=== PATIENT | male | born 1975 | race American Indian/Alaskan Native ===

== ENCOUNTER 2016-11-13 17:35 | Emergency (ER) | payer SELFPAY ==
[2016-11-13 17:46] VITALS: BP 147/92
--- NOTE | 2016-11-13 21:18 | XRay Report ---
FINAL REPORT EXAM: XR FOOT 3 LT HISTORY: LEFT FOOT pain COMPARISONS: None. FINDINGS: Three nonweightbearing views left foot No bone lesion, periosteal reaction, or fracture. No deformity or gross malalignment. IMPRESSION: No fracture or gross malalignment.
--- NOTE | 2016-11-13 21:19 | XRay Report ---
FINAL REPORT EXAM: XR ANKLE 3 LT HISTORY: LEFT ANKLE pain COMPARISONS: None. FINDINGS: Four nonweightbearing views left ankle The ankle mortise is intact. Os trigonum is noted. No bone lesion, periosteal reaction, or fracture. No deformity or gross malalignment. IMPRESSION: No fracture or gross malalignment.
[2016-11-13] MEDS ORDERED: TORADOL IM ONE (21:58)
--- NOTE | 2016-11-13 22:29 | Emergency Department Report ---
Entered by BEN BADILLO, acting as scribe for DAYANA GARRISON NP. ED Lower Extremity HPI - General Chief Complaint: Extremity Injury, Lower Stated Complaint: FOOT PAIN Time Seen by Provider: 11/13/16 19:59 Source: patient Mode of arrival: Ambulatory Limitations: No Limitations - History of Present Illness Initial Comments: This is a 41 year old male that is non-toxic, non ill appearing, in no acute distress with c/o aching left foot pain. Patient stated he started to walk a lot for work and started to develop these symptoms since then. Symptoms has occurred 3 days ago. Patient does not know the source of pain or swelling. Patient describes symptoms of aching with level of 10/10. Patient denies trauma to left foot, numbness, redness, tingling, joint swelling, joint redness, cool to touch, abnormal gait, or drop foot. Patient reports aggravation while walking and alleviated with OTC meds. NKDA. Denies [facility]. Complaint: foot injury (left sided) -: Gradual, days(s) (3) Injury: Foot: Left Type of Injury: unknown Place: home Severity: moderate Severity scale (0 -10): 3 Improves With: NSAID Worsens With: weight bearing, movement Context: other (unknown ) Associated Symptoms: able to partially bear weight, ambulatory. denies: snap/ pop sensation, swelling, numbness, tingling, unable to bear weight - Related Data Previous Rx's Medication Instructions Recorded Last Taken Type Ibuprofen [Motrin 600 MG tab] 600 mg PO Q8H PRN #30 tablet 03/26/15 Unknown Rx Amoxicillin [Trimox CAP] 500 mg PO Q8H #30 capsule 03/28/15 Unknown Rx HYDROcodone/APAP 10-325 [[place] 1 each PO Q6HR PRN #12 tablet 03/28/15 Unknown Rx 10/325] Acetaminophen/Codeine [Tylenol #3] 1 tab PO Q6H PRN #15 tab 08/16/15 Unknown Rx Cyclobenzaprine [Flexeril 10 MG 10 mg PO TID PRN #12 tablet 08/16/15 Unknown Rx TAB] Ibuprofen [Motrin 800 MG tab] 800 mg PO Q8HR PRN #30 tablet 08/16/15 Unknown Rx Naproxen [Naprosyn] 500 mg PO BID #30 tablet 06/28/16 Unknown Rx Ibuprofen [Motrin 600 MG tab] 600 mg PO Q8H PRN #15 tablet 11/13/16 Unknown Rx predniSONE [Deltasone] 20 mg PO BID #10 tab 11/13/16 Unknown Rx Allergies Allergy/AdvReac Type Severity Reaction Status Date / Time No Known Allergies Allergy Unverified 03/26/15 14:07 ED Review of Systems Constitutional: denies: chills, fever Eyes: denies: eye pain, eye discharge, vision change ENT: denies: ear pain, throat pain, dental pain, hearing loss, epistaxis, congestion Respiratory: denies: cough, orthopnea, shortness of breath, SOB with exertion, SOB at rest, wheezing Cardiovascular: denies: chest pain, palpitations Endocrine: no symptoms reported Gastrointestinal: denies: abdominal pain, nausea, diarrhea Genitourinary: denies: urgency, dysuria Musculoskeletal: other (left foot pain). denies: back pain, joint swelling, arthralgia Skin: denies: rash, lesions Neurological: denies: headache, weakness, paresthesias Psychiatric: denies: anxiety, depression Hematological/Lymphatic: denies: easy bleeding, easy bruising ED Past Medical Hx - Past Medical History Previous Medical History?: No - Surgical History Past Surgical History?: No - Social History Smoking Status: Current Every Day Smoker Substance Use Type: Alcohol, Non Opiate Pain - Medications Home Medications: Home Medications Medication Instructions Recorded Confirmed Last Taken Type Ibuprofen [Motrin 600 MG tab] 600 mg PO Q8H PRN #30 tablet 03/26/15 Unknown Rx Amoxicillin [Trimox CAP] 500 mg PO Q8H #30 capsule 03/28/15 Unknown Rx HYDROcodone/APAP 10-325 [[place] 1 each PO Q6HR PRN #12 tablet 03/28/15 Unknown Rx 10/325] Acetaminophen/Codeine [Tylenol #3] 1 tab PO Q6H PRN #15 tab 08/16/15 Unknown Rx Cyclobenzaprine [Flexeril 10 MG 10 mg PO TID PRN #12 tablet 08/16/15 Unknown Rx TAB] Ibuprofen [Motrin 800 MG tab] 800 mg PO Q8HR PRN #30 tablet 08/16/15 Unknown Rx Naproxen [Naprosyn] 500 mg PO BID #30 tablet 06/28/16 Unknown Rx Ibuprofen [Motrin 600 MG tab] 600 mg PO Q8H PRN #15 tablet 11/13/16 Unknown Rx predniSONE [Deltasone] 20 mg PO BID #10 tab 11/13/16 Unknown Rx ED Physical Exam - General Limitations: No Limitations General appearance: alert, in no apparent distress - Head Head exam: Present: atraumatic, normocephalic, normal inspection - Eye Eye exam: Present: normal appearance, PERRL, EOMI. Absent: scleral icterus, conjunctival injection, nystagmus, periorbital swelling, periorbital tenderness Pupils: Present: normal accommodation. Absent: irregular - ENT ENT exam: Present: normal exam, normal orophraynx, mucous membranes moist, TM's normal bilaterally, normal external ear exam - Neck Neck exam: Present: normal inspection, full ROM. Absent: tenderness, meningismus, lymphadenopathy, thyromegaly - Respiratory Respiratory exam: Present: normal lung sounds bilaterally. Absent: respiratory distress, wheezes, rales, rhonchi, stridor, chest wall tenderness, accessory muscle use, decreased breath sounds, prolonged expiratory - Cardiovascular Cardiovascular Exam: Present: regular rate, normal rhythm, normal heart sounds. Absent: bradycardia, tachycardia, irregular rhythm, systolic murmur, diastolic murmur, rubs, gallop - GI/Abdominal GI/Abdominal exam: Present: soft, normal bowel sounds. Absent: distended, tenderness, guarding, rebound, rigid, diminished bowel sounds, hyperactive bowel sounds, hypoactive bowel sounds, organomegaly - Rectal Rectal exam: Present: deferred - Extremities Exam Extremities exam: Present: normal inspection, full ROM, tenderness, normal capillary refill. Absent: pedal edema, joint swelling, calf tenderness - Expanded Lower Extremity Exam Left Hip exam: Present: normal inspection, full ROM, pelvic stability. Absent: tenderness, swelling, abrasion, laceration, ecchymosis, deformity, crepidus, dislocation, erythema, external rotation, internal rotation, shortening Upper Leg exam: Present: normal inspection, full ROM. Absent: tenderness, swelling, abrasion, laceration, ecchymosis, deformity, crepidus, dislocation, erythema Knee exam: Present: normal inspection, full ROM, full knee extension. Absent: tenderness, swelling, abrasion, laceration, ecchymosis, deformity, crepidus, dislocation, erythema, effusion, pain w/ pronation/supination, posterior draw sign, pain/laxity with valgus, pain/laxity with varus Lower Leg exam: Present: normal inspection, full ROM. Absent: tenderness, swelling, abrasion, laceration, ecchymosis, deformity, crepidus, dislocation, erythema, palpable cord, Julee's sign Ankle exam: Present: normal inspection, full ROM, swelling (slight). Absent: tenderness, abrasion, laceration, ecchymosis, deformity, crepidus, dislocation, erythema, anterior draw sign Foot/Toe exam: Present: normal inspection, full ROM, tenderness (to anterior and lateral foot), swelling (anterior and lateral foot). Absent: abrasion, laceration, ecchymosis, deformity, crepidus, dislocation, erythema, amputation, puncture wound, foreign body, calcaneal tenderness, tenderness at base of 5th metatarsal, nail avulsion, subungual hematoma Neuro vascular tendon exam: Present: no vascular compromise. Absent: pulse deficit, abnormal cap refill, motor deficit, sensory deficit, tendon deficit, extremity cold to touch, pallor, abnormal 2-point discrimination, decreased fine /light touch, foot drop, peroneal nerve deficit, significant pain with passive ROM of distal joint Gait: Positive: observed and limited by pain 1 - tenderness to touch with sligt swelling - Back Exam Back exam: Present: normal inspection, full ROM. Absent: tenderness, CVA tenderness (R), CVA tenderness (L), muscle spasm, paraspinal tenderness, vertebral tenderness, rash noted - Neurological Exam Neurological exam: Present: alert, oriented X3, CN II-XII intact, normal gait, reflexes normal - Psychiatric Psychiatric exam: Present: normal affect, normal mood - Skin Skin exam: Present: warm, dry, intact, normal color. Absent: rash ED Course Vital Signs 11/13/16 17:43 Temperature 98.7 F Pulse Rate 90 Respiratory 20 Rate Blood Pressure 147/92 O2 Sat by Pulse 98 Oximetry - Reevaluation(s) Reevaluation #1: 11/13/16 22:07 Patient is sitting on the bed with no signs of distress noted. ED Lower Extremity MDM - Medical Decision Making Ed course: This is a 41-year-old male that presents with left foot strain 1- patient was examined by myself. Xray has been obtained of ankle and foot with normal findings. No fractures noted or soft tissue swelling. Dictated by Dr. Wagner. Patient has been notified of the xray findings. 2- Patient received Solu-Medrol and Toradol for pain and swelling. 3- patient also received Quinton wrap to her left foot and ankle as well as crutches and was instructed to follow-up with Dr. Carey or another orthopedic doctor in 3-5 days or if symptoms worse and unbearable return to emergency room as soon as possible. 4- patient was discharged with prednisone and ibuprofen. 5- at time time of discharge, the patient does not seem toxic or ill in appearance. No acute signs of distress noted. Patient agrees to discharge treatment plan of care. No further questions noted by the patient. 6- Pt was also instructed to RICE therapy ED Disposition Clinical Impression: Strain of left foot Qualifiers: Encounter type: initial encounter Qualified Code(s): S96.912A - Strain of unspecified muscle and tendon at ankle and foot level, left foot, initial encounter Disposition: DC- TO HOME OR SELFCARE Is pt being admited?: No Does the pt Need Aspirin: No Condition: Stable Instructions: RICE Therapy (ED), Prednisone (By mouth), Ibuprofen (By mouth), Crutch Instructions (ED) Additional Instructions: Follow-up with Dr. Carey or another orthopedic doctor in 3-5 days or if symptoms worse and unbearable return to emergency room as soon as possible. Rest, elevate, and ice the affected area Take prednisone and ibuprofen as prescribed. Prescriptions: Ibuprofen [Motrin 600 MG tab] 600 mg PO Q8H PRN #15 tablet PRN Reason: Pain predniSONE [Deltasone] 20 mg PO BID #10 tab Referrals: PRIMARY MD DAVID [Primary Care Provider] - 3-5 Days JOSI CAREY MD [Staff Physician] - 3-5 Days [facility] [Outside] - 3-5 Days [facility] [Outside] - 3-5 Days Forms: Work/School Release Form(ED) This documentation as recorded by the ABY tolliver PEARL,accurately reflects the service I personally performed and the decisions made by me,DAYANA GARRISON NP.
== END 2016-11-13 22:24 | disposition home or self-care (01) ==
LOC: ED 17:35
DX: S96.912A Strain of unspecified muscle and tendon at ankle and foot level, left foot, initial encounter (principal); F17.200 Nicotine dependence, unspecified, uncomplicated; X58.XXXA Exposure to other specified factors, initial encounter; Y93.9 Activity, unspecified; Y92.9 Unspecified place or not applicable; Y99.9 Unspecified external cause status
CPT/HCPCS: 73610; 73630; 96372; 99283; J1885; J2930

== ENCOUNTER 2017-02-17 08:14 | Emergency (ER) | payer BC ==
[2017-02-17 08:21] VITALS: BP 125/86
--- NOTE | 2017-02-17 09:19 | Emergency Department Report ---
ED ENT HPI - General Chief complaint: Headache Stated complaint: SINUS SORIA Time Seen by Provider: 02/17/17 09:05 Source: patient Mode of arrival: Ambulatory Limitations: No Limitations - History of Present Illness Initial comments: This is a 41-year-old male nontoxic, well nourished in appearance, no acute signs of distress presents to the ED complaining of headache and allergic sinusitis x2 days. Patient stated this is an occurrence intermittently for many years. Patient stated he develops this yearly during this time and the season and usually is prescribed something for headache as well as nasal steroid spray if symptoms subside. Patient denies any fever, cough, sore throat , chills, stiff neck, headache, nausea, vomiting, chest pain shortness of breath. Patient has headache as a non-thunderclap diffuse aching headache with level of 6 out of 10. Patient denies any blurry vision or visual changes. Patient denies numbness or tingling. Patient denies any allergies or significant past medical history. MD complaint: other (allergic rhinitis) -: Gradual, year(s) Severity: mild Severity scale (0 -10): 6 Quality: aching Consistency: intermittent Improves with: none Worsens with: none Associated Symptoms: rhinorrhea. denies: fever, cough, gum swelling, toothache , pain with swallowing, sore throat, tinnitus, hearing loss, discharge from ear - Related Data Previous Rx's Medication Instructions Recorded Last Taken Type Ibuprofen [Motrin 600 MG tab] 600 mg PO Q8H PRN #30 tablet 03/26/15 Unknown Rx Amoxicillin [Trimox CAP] 500 mg PO Q8H #30 capsule 03/28/15 Unknown Rx HYDROcodone/APAP 10-325 [[place] 1 each PO Q6HR PRN #12 tablet 03/28/15 Unknown Rx 10/325] Acetaminophen/Codeine [Tylenol #3] 1 tab PO Q6H PRN #15 tab 08/16/15 Unknown Rx Cyclobenzaprine [Flexeril 10 MG 10 mg PO TID PRN #12 tablet 08/16/15 Unknown Rx TAB] Ibuprofen [Motrin 800 MG tab] 800 mg PO Q8HR PRN #30 tablet 08/16/15 Unknown Rx Naproxen [Naprosyn] 500 mg PO BID #30 tablet 06/28/16 Unknown Rx Ibuprofen [Motrin 600 MG tab] 600 mg PO Q8H PRN #15 tablet 11/13/16 Unknown Rx predniSONE [Deltasone] 20 mg PO BID #10 tab 11/13/16 Unknown Rx Butalb/Acetamin/Caff 50-325-40 1 tab PO Q6HR PRN #30 tab 02/17/17 Unknown Rx [Fioricet] Fluticasone Furoate [Flonase 15.8 ml NS DAILY #1 spray.susp 02/17/17 Unknown Rx Sensimist] Allergies Allergy/AdvReac Type Severity Reaction Status Date / Time No Known Allergies Allergy Unverified 03/26/15 14:07 ED Dental HPI - General Chief complaint: Headache Stated complaint: SINUS SORIA Time Seen by Provider: 02/17/17 09:05 Source: patient Mode of arrival: Ambulatory Limitations: No Limitations - Related Data Previous Rx's Medication Instructions Recorded Last Taken Type Ibuprofen [Motrin 600 MG tab] 600 mg PO Q8H PRN #30 tablet 03/26/15 Unknown Rx Amoxicillin [Trimox CAP] 500 mg PO Q8H #30 capsule 03/28/15 Unknown Rx HYDROcodone/APAP 10-325 [[place] 1 each PO Q6HR PRN #12 tablet 03/28/15 Unknown Rx 10/325] Acetaminophen/Codeine [Tylenol #3] 1 tab PO Q6H PRN #15 tab 08/16/15 Unknown Rx Cyclobenzaprine [Flexeril 10 MG 10 mg PO TID PRN #12 tablet 08/16/15 Unknown Rx TAB] Ibuprofen [Motrin 800 MG tab] 800 mg PO Q8HR PRN #30 tablet 08/16/15 Unknown Rx Naproxen [Naprosyn] 500 mg PO BID #30 tablet 06/28/16 Unknown Rx Ibuprofen [Motrin 600 MG tab] 600 mg PO Q8H PRN #15 tablet 11/13/16 Unknown Rx predniSONE [Deltasone] 20 mg PO BID #10 tab 11/13/16 Unknown Rx Butalb/Acetamin/Caff 50-325-40 1 tab PO Q6HR PRN #30 tab 02/17/17 Unknown Rx [Fioricet] Fluticasone Furoate [Flonase 15.8 ml NS DAILY #1 spray.susp 02/17/17 Unknown Rx Sensimist] Allergies Allergy/AdvReac Type Severity Reaction Status Date / Time No Known Allergies Allergy Unverified 03/26/15 14:07 ED Review of Systems ROS: Stated complaint: SINUS SORIA Other details as noted in HPI Constitutional: denies: chills, fever Eyes: denies: eye pain, eye discharge, vision change ENT: denies: ear pain, throat pain Respiratory: denies: cough, shortness of breath, wheezing Cardiovascular: denies: chest pain, palpitations Endocrine: no symptoms reported Gastrointestinal: denies: abdominal pain, nausea, diarrhea Genitourinary: denies: urgency, dysuria Musculoskeletal: denies: back pain, joint swelling, arthralgia Skin: denies: rash, lesions Neurological: denies: headache, weakness, paresthesias Psychiatric: denies: anxiety, depression Hematological/Lymphatic: denies: easy bleeding, easy bruising ED Past Medical Hx - Past Medical History Previous Medical History?: Yes Hx Headaches / Migraines: Yes - Surgical History Past Surgical History?: No - Social History Smoking Status: Current Every Day Smoker Substance Use Type: None - Medications Home Medications: Home Medications Medication Instructions Recorded Confirmed Last Taken Type Ibuprofen [Motrin 600 MG tab] 600 mg PO Q8H PRN #30 tablet 03/26/15 Unknown Rx Amoxicillin [Trimox CAP] 500 mg PO Q8H #30 capsule 03/28/15 Unknown Rx HYDROcodone/APAP 10-325 [[place] 1 each PO Q6HR PRN #12 tablet 03/28/15 Unknown Rx 10/325] Acetaminophen/Codeine [Tylenol #3] 1 tab PO Q6H PRN #15 tab 08/16/15 Unknown Rx Cyclobenzaprine [Flexeril 10 MG 10 mg PO TID PRN #12 tablet 08/16/15 Unknown Rx TAB] Ibuprofen [Motrin 800 MG tab] 800 mg PO Q8HR PRN #30 tablet 08/16/15 Unknown Rx Naproxen [Naprosyn] 500 mg PO BID #30 tablet 06/28/16 Unknown Rx Ibuprofen [Motrin 600 MG tab] 600 mg PO Q8H PRN #15 tablet 11/13/16 Unknown Rx predniSONE [Deltasone] 20 mg PO BID #10 tab 11/13/16 Unknown Rx Butalb/Acetamin/Caff 50-325-40 1 tab PO Q6HR PRN #30 tab 02/17/17 Unknown Rx [Fioricet] Fluticasone Furoate [Flonase 15.8 ml NS DAILY #1 spray.susp 02/17/17 Unknown Rx Sensimist] ED Physical Exam - General Limitations: No Limitations General appearance: alert, in no apparent distress - Head Head exam: Present: atraumatic, normocephalic - Eye Eye exam: Present: normal appearance, PERRL, EOMI. Absent: scleral icterus Pupils: Present: normal accommodation - ENT ENT exam: Present: normal exam, normal orophraynx, mucous membranes moist, TM's normal bilaterally, normal external ear exam, other (erythema in bilateral intranasal) - Neck Neck exam: Present: normal inspection, full ROM. Absent: tenderness, meningismus, lymphadenopathy, thyromegaly - Respiratory Respiratory exam: Present: normal lung sounds bilaterally. Absent: respiratory distress, wheezes, rales, rhonchi, stridor, chest wall tenderness, accessory muscle use, decreased breath sounds, prolonged expiratory - Cardiovascular Cardiovascular Exam: Present: regular rate, normal rhythm, normal heart sounds. Absent: bradycardia, tachycardia, irregular rhythm, systolic murmur, diastolic murmur, rubs, gallop - GI/Abdominal GI/Abdominal exam: Present: soft, normal bowel sounds. Absent: distended, tenderness, guarding, rebound, rigid, diminished bowel sounds - Rectal Rectal exam: Present: deferred - Extremities Exam Extremities exam: Present: normal inspection, full ROM, normal capillary refill. Absent: tenderness, pedal edema, joint swelling, calf tenderness - Back Exam Back exam: Present: normal inspection, full ROM. Absent: tenderness, CVA tenderness (R), CVA tenderness (L), muscle spasm, paraspinal tenderness, vertebral tenderness, rash noted - Neurological Exam Neurological exam: Present: alert, oriented X3, CN II-XII intact, normal gait, reflexes normal - Psychiatric Psychiatric exam: Present: normal affect, normal mood - Skin Skin exam: Present: warm, dry, intact, normal color. Absent: rash ED Course Vital Signs 02/17/17 08:18 Temperature 97.9 F Pulse Rate 85 Respiratory 18 Rate Blood Pressure 125/86 O2 Sat by Pulse 100 Oximetry - Reevaluation(s) Reevaluation #1: 02/17/17 09:19 Patient is speaking in full sentences with no signs of distress noted. Critical care attestation.: If time is entered above; I have spent that time in minutes in the direct care of this critically ill patient, excluding procedure time. ED Disposition Clinical Impression: Allergic sinusitis Headache Qualifiers: Headache type: unspecified Headache chronicity pattern: unspecified pattern Intractability: not intractable Qualified Code(s): R51 - Headache Disposition: DC- TO HOME OR SELFCARE Is pt being admited?: No Does the pt Need Aspirin: No Condition: Stable Instructions: Acute Headache (ED), Fluticasone (Into the nose), Butalbital/ Acetaminophen/Caffeine (By mouth) Additional Instructions: Follow-up with a primary care doctor in 3-5 days or if symptoms worsen and continue return to emergency room as soon as possible possible. Prescriptions: Butalb/Acetamin/Caff 50-325-40 [Fioricet] 1 tab PO Q6HR PRN #30 tab PRN Reason: Headache Fluticasone Furoate [Flonase Sensimist] 15.8 ml NS DAILY #1 spray.susp Referrals: PRIMARY CAREMD [Primary Care Provider] - 3-5 Days RACHELLE SAEED MD [Staff Physician] - 3-5 Days [facility] [Outside] - 3-5 Days [facility] [Outside] - 3-5 Days Forms: Work/School Release Form(ED)
== END 2017-02-17 09:38 | disposition home or self-care (01) ==
LOC: ED 08:14
DX: J30.9 Allergic rhinitis, unspecified (principal); R51 Headache; F17.200 Nicotine dependence, unspecified, uncomplicated
CPT/HCPCS: 99282

== ENCOUNTER 2017-02-26 10:26 | Emergency (ER) | payer BC ==
[2017-02-26] MEDS ORDERED: NACL 0.9% 1000 ML 1,000 ML IV ONE (14:13)
[2017-02-26] MEDS ORDERED: BENADRYL IV ONE (14:14)
[2017-02-26] MEDS ORDERED: REGLAN IV ONE (14:14)
[2017-02-26] MEDS ORDERED: TORADOL IV ONE (14:14)
[2017-02-26 15:21] LABS: Hematocrit 38.4 % (35.5-45.6); Hemoglobin 13.2 gm/dl (11.8-15.2); Mean Corpuscular HGB Conc 34 % (32-34); Mean Corpuscular Hemoglobin 33 pg (28-32); Mean Corpuscular Volume 97 fl (84-94); Platelet Count 285 K/mm3 (140-440); Red Blood Count 3.97 M/mm3 (3.65-5.03); Red Cell Distribution Width 13.2 % (13.2-15.2); White Blood Count 4.3 K/mm3 (4.5-11.0)
[2017-02-26 15:48] LABS: Anion Gap 16 mmol/L; BUN/Creatinine Ratio 13; Blood Urea Nitrogen 13 mg/dL (9-20); Calcium 9.4 mg/dL (8.4-10.2); Carbon Dioxide 27 mmol/L (22-30); Glucose 78 mg/dL (75-100); Potassium 4.4 mmol/L (3.6-5.0); Sodium 143 mmol/L (137-145)
--- NOTE | 2017-02-26 16:07 | Emergency Department Report ---
ED Headache HPI - General Chief Complaint: Headache Stated Complaint: HEADACHE Source: patient Exam Limitations: no limitations - History of Present Illness Initial Comments: 41 year old male presents to ED with chronic migraines. patient states today's episode feels like his classical migraine. patient states he has had multiple MRI's and CT's previously. patient states he has no medication for migraine and cannot remember what his MD has prescribed him in the past. patient is stable, neurologically intact and in no acute distress. patient has normal observed gait. patient is alert and oriented to person place time and self. Timing/Duration: episodic Quality: mild Head Injury Location: frontal Recent Head Trauma: no recent headache/trauma Associated Symptoms: denies symptoms. denies: confusion, fatigue, facial pain, fever/chills, flushing, loss of consciousness, nausea/vomiting, nasal congestion , nasal drainage, numbness in legs/feet, rash, seizures, stiff neck, vision changes, weakness Allergies/Adverse Reactions: Allergies No Known Allergies Allergy (Unverified 03/26/15 14:07) Home Medications: Ambulatory Orders Ibuprofen [Motrin 600 MG tab] 600 mg PO Q8H PRN #30 tablet 03/26/15 Amoxicillin [Trimox CAP] 500 mg PO Q8H #30 capsule 03/28/15 HYDROcodone/APAP 10-325 [[place] 10/325] 1 each PO Q6HR PRN #12 tablet 03/28/15 Acetaminophen/Codeine [Tylenol #3] 1 tab PO Q6H PRN #15 tab 08/16/15 Cyclobenzaprine [Flexeril 10 MG TAB] 10 mg PO TID PRN #12 tablet 08/16/15 Ibuprofen [Motrin 800 MG tab] 800 mg PO Q8HR PRN #30 tablet 08/16/15 Naproxen [Naprosyn] 500 mg PO BID #30 tablet 06/28/16 Ibuprofen [Motrin 600 MG tab] 600 mg PO Q8H PRN #15 tablet 11/13/16 predniSONE [Deltasone] 20 mg PO BID #10 tab 11/13/16 Butalb/Acetamin/Caff 50-325-40 [Fioricet] 1 tab PO Q6HR PRN #30 tab 02/17/17 Fluticasone Furoate [Flonase Sensimist] 15.8 ml NS DAILY #1 spray.susp 02/17/17 Meloxicam 7.5 mg PO QAM #7 tablet 02/26/17 ED Review of Systems ROS: Stated complaint: HEADACHE Other details as noted in HPI Constitutional: denies: chills, fever Eyes: denies: eye pain, eye discharge, vision change ENT: denies: ear pain, throat pain Respiratory: denies: cough, shortness of breath, wheezing Cardiovascular: denies: chest pain, palpitations Endocrine: no symptoms reported Gastrointestinal: denies: abdominal pain, nausea, diarrhea Genitourinary: denies: urgency, dysuria Musculoskeletal: denies: back pain, joint swelling, arthralgia Skin: denies: rash, lesions Neurological: headache. denies: weakness, numbness, paresthesias, confusion, abnormal gait, vertigo Psychiatric: denies: anxiety, depression Hematological/Lymphatic: denies: easy bleeding, easy bruising ED Past Medical Hx - Past Medical History Previous Medical History?: Yes Hx Headaches / Migraines: Yes - Surgical History Past Surgical History?: No - Social History Smoking Status: Current Every Day Smoker Substance Use Type: None - Medications Home Medications: Home Medications Medication Instructions Recorded Confirmed Last Taken Type Ibuprofen [Motrin 600 MG tab] 600 mg PO Q8H PRN #30 tablet 03/26/15 Unknown Rx Amoxicillin [Trimox CAP] 500 mg PO Q8H #30 capsule 03/28/15 Unknown Rx HYDROcodone/APAP 10-325 [[place] 1 each PO Q6HR PRN #12 tablet 03/28/15 Unknown Rx 10/325] Acetaminophen/Codeine [Tylenol #3] 1 tab PO Q6H PRN #15 tab 08/16/15 Unknown Rx Cyclobenzaprine [Flexeril 10 MG 10 mg PO TID PRN #12 tablet 08/16/15 Unknown Rx TAB] Ibuprofen [Motrin 800 MG tab] 800 mg PO Q8HR PRN #30 tablet 08/16/15 Unknown Rx Naproxen [Naprosyn] 500 mg PO BID #30 tablet 06/28/16 Unknown Rx Ibuprofen [Motrin 600 MG tab] 600 mg PO Q8H PRN #15 tablet 11/13/16 Unknown Rx predniSONE [Deltasone] 20 mg PO BID #10 tab 11/13/16 Unknown Rx Butalb/Acetamin/Caff 50-325-40 1 tab PO Q6HR PRN #30 tab 02/17/17 Unknown Rx [Fioricet] Fluticasone Furoate [Flonase 15.8 ml NS DAILY #1 spray.susp 02/17/17 Unknown Rx Sensimist] Meloxicam 7.5 mg PO QAM #7 tablet 02/26/17 Unknown Rx ED Physical Exam - General Limitations: No Limitations General appearance: alert, in no apparent distress - Head Head exam: Present: atraumatic, normocephalic - Eye Eye exam: Present: normal appearance - ENT ENT exam: Present: mucous membranes moist - Neck Neck exam: Present: normal inspection, full ROM. Absent: tenderness - Respiratory Respiratory exam: Present: normal lung sounds bilaterally. Absent: respiratory distress, wheezes, chest wall tenderness - Cardiovascular Cardiovascular Exam: Present: regular rate, normal rhythm - GI/Abdominal GI/Abdominal exam: Present: soft, normal bowel sounds. Absent: distended, tenderness, guarding - Rectal Rectal exam: Present: deferred - Extremities Exam Extremities exam: Present: normal inspection - Back Exam Back exam: Present: normal inspection - Neurological Exam Neurological exam: Present: alert, oriented X3, normal gait - Expanded Neurological Exam Expanded Neurological exam: Absent: innattentive Patient oriented to: Present: person, place, time Speech: Present: fluid speech Cranial nerves: EOM's Intact: Normal, Tongue Deviation: Normal Sensory exam: Upper Extremity Light Touch: Normal, Lower Extremity Light Touch: Normal Motor strength exam: RUE: 5, LUE: 5, RLE: 5, LLE: 5 Best Eye Response ([place]): (4) open spontaneously Best Motor Response ([place]): (6) obeys commands Best Verbal Response ([place]): (5) oriented [place] Total: 15 - Psychiatric Psychiatric exam: Present: normal affect, normal mood - Skin Skin exam: Present: warm, dry, intact, normal color. Absent: rash ED Course Vital Signs 02/26/17 02/26/17 02/26/17 10:30 14:28 15:21 Temperature 97.7 F Pulse Rate 94 H Respiratory 18 18 Rate Blood Pressure 140/81 Blood Pressure [Left] O2 Sat by Pulse 96 16 L Oximetry 02/26/17 17:21 Temperature Pulse Rate 75 Respiratory 20 Rate Blood Pressure Blood Pressure 131/88 [Left] O2 Sat by Pulse Oximetry ED Medical Decision Making - Lab Data Result diagrams: 02/26/17 14:29 02/26/17 14:29 Labs 02/26/17 02/26/17 14:29 14:29 WBC 4.3 L RBC 3.97 Hgb 13.2 Hct 38.4 MCV 97 H MCH 33 H MCHC 34 RDW 13.2 Plt Count 285 Sodium 143 Potassium 4.4 Chloride 104.0 Carbon Dioxide 27 Anion Gap 16 BUN 13 Creatinine 1.0 Estimated GFR > 60 BUN/Creatinine Ratio 13 Glucose 78 Calcium 9.4 - Medical Decision Making 41 year old male presents to ED with chronic migraine exacerbation. patient states he has had on and off migraine for the past 1 month and has no medication to treat his migraine. patient is stable, neurologically intact and in no acute distress. patient states his pain has completely resolved after IV fluids and IV medications. patient has normal observed gait. patient agrees and understands to follow up with neurologist within 2-3 days. Critical care attestation.: If time is entered above; I have spent that time in minutes in the direct care of this critically ill patient, excluding procedure time. ED Disposition Clinical Impression: Migraine headache Qualifiers: Migraine type: without aura Status migrainosus presence: with status migrainosus Intractability: not intractable Qualified Code(s): G43.001 - Migraine without aura, not intractable, with status migrainosus Disposition: -01 TO HOME OR SELFCARE Is pt being admited?: No Does the pt Need Aspirin: No Condition: Stable Instructions: Migraine Headache (ED) Prescriptions: Meloxicam 7.5 mg PO QAM #7 tablet Referrals: [facility] [Outside] - 2-3 Days ROOSEVELT HARRISON MD [Staff Physician] - 2-3 Days Forms: Work/School Release Form(ED)
[2017-02-26 17:22] VITALS: BP 131/88
== END 2017-02-26 17:21 | disposition home or self-care (01) ==
LOC: ED 10:26
DX: G43.001 Migraine without aura, not intractable, with status migrainosus (principal); F17.200 Nicotine dependence, unspecified, uncomplicated
CPT/HCPCS: 36415; 80048; 85027; 96361; 96374; 96375; 99283; J1200; J1885; J2765; J7030

== ENCOUNTER 2017-09-22 13:12 | Emergency (ER) | payer BC ==
[2017-09-22 13:59] VITALS: BP 137/87
== END 2017-09-22 13:58 | disposition left against medical advice (07) ==
LOC: ED 13:12
DX: R42 Dizziness and giddiness (principal); G43.909 Migraine, unspecified, not intractable, without status migrainosus; F17.200 Nicotine dependence, unspecified, uncomplicated; Z53.21 Procedure and treatment not carried out due to patient leaving prior to being seen by health care provider

== ENCOUNTER 2017-09-23 08:33 | Emergency (ER) | payer BC ==
[2017-09-23 08:40] VITALS: BP 130/86
[2017-09-23 09:33] LABS: Basophils % (Auto) 0.6 % (0.0-1.8); Eosinophils # (Auto) 0.1 K/mm3 (0.0-0.4); Eosinophils % (Auto) 3.8 % (0.0-4.3); Hematocrit 42.7 % (35.5-45.6); Hemoglobin 14.4 gm/dl (11.8-15.2); Lymphocytes # (Auto) 1.7 K/mm3 (1.2-5.4); Lymphocytes % (Auto) 41.7 % (13.4-35.0); Mean Corpuscular HGB Conc 34 % (32-34); Mean Corpuscular Hemoglobin 32 pg (28-32); Mean Corpuscular Volume 94 fl (84-94); Monocytes # (Auto) 0.4 K/mm3 (0.0-0.8); Monocytes % (Auto) 9.7 % (0.0-7.3); Platelet Count 276 K/mm3 (140-440); Red Blood Count 4.52 M/mm3 (3.65-5.03); Red Cell Distribution Width 13.3 % (13.2-15.2)
[2017-09-23 09:41] LABS: Bilirubin,Urine NEG (Negative); Blood,Urine NEG (Negative); Color,Urine Yellow (Yellow); Protein,Urine <15 mg/dL mg/dL (Negative); Urobilinogen,Urine < 2.0 mg/dL (<2.0); WBC,Urine < 1.0 /HPF (0.0-6.0)
[2017-09-23 09:50] LABS: BUN/Creatinine Ratio 11; Blood Urea Nitrogen 12 mg/dL (9-20); Calcium 9.8 mg/dL (8.4-10.2); Hemolysis Index 12
--- NOTE | 2017-09-23 11:33 | Emergency Department Report ---
ED Dizziness HPI - General Chief Complaint: Dizziness Stated Complaint: DIZZY Time Seen by Provider: 09/23/17 11:13 Source: patient Mode of arrival: Ambulatory Limitations: No Limitations - History of Present Illness Initial Comments: 41-year-old -[place] male with no past medical history comes in complaining of dizziness for a week. Patient reports that he has intermittent dizziness "patient I feel like I'm about to faint". 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 He's been back from [place] for 3 days. He denies any nausea no vomiting no fever no chills denies any chest pain or shortness of breathing. Patient also denies any recent traumas no recent URIs no headaches. He does admit [facility]. He reports that the dizziness with turning his head. MD Complaint: dizziness -: week(s) (1) History of Same: No History of Trauma: No Improves With: nothing Worsens With: movement Associated Symptoms: denies other symptoms. denies: chest pain, fever/chills, seizure - Related Data Previous Rx's Medication Instructions Recorded Last Taken Type Ibuprofen [Motrin 600 MG tab] 600 mg PO Q8H PRN #30 tablet 03/26/15 Unknown Rx Amoxicillin [Trimox CAP] 500 mg PO Q8H #30 capsule 03/28/15 Unknown Rx HYDROcodone/APAP 10-325 [[place] 1 each PO Q6HR PRN #12 tablet 03/28/15 Unknown Rx 10/325] Acetaminophen/Codeine [Tylenol #3] 1 tab PO Q6H PRN #15 tab 08/16/15 Unknown Rx Cyclobenzaprine [Flexeril 10 MG 10 mg PO TID PRN #12 tablet 08/16/15 Unknown Rx TAB] Ibuprofen [Motrin 800 MG tab] 800 mg PO Q8HR PRN #30 tablet 08/16/15 Unknown Rx Naproxen [Naprosyn] 500 mg PO BID #30 tablet 06/28/16 Unknown Rx Ibuprofen [Motrin 600 MG tab] 600 mg PO Q8H PRN #15 tablet 11/13/16 Unknown Rx predniSONE [Deltasone] 20 mg PO BID #10 tab 11/13/16 Unknown Rx Butalb/Acetamin/Caff 50-325-40 1 tab PO Q6HR PRN #30 tab 02/17/17 Unknown Rx [Fioricet] Fluticasone Furoate [Flonase 15.8 ml NS DAILY #1 spray.susp 02/17/17 Unknown Rx Sensimist] Meloxicam 7.5 mg PO QAM #7 tablet 02/26/17 Unknown Rx Allergies Allergy/AdvReac Type Severity Reaction Status Date / Time No Known Allergies Allergy Unverified 03/26/15 14:07 ED Review of Systems ROS: Stated complaint: DIZZY Other details as noted in HPI Constitutional: denies: chills, fever Eyes: denies: eye pain, eye discharge, vision change ENT: denies: ear pain, throat pain Respiratory: denies: cough, shortness of breath, wheezing Cardiovascular: denies: chest pain, palpitations Endocrine: no symptoms reported Gastrointestinal: denies: abdominal pain, nausea, diarrhea Genitourinary: denies: urgency, dysuria Musculoskeletal: denies: back pain, joint swelling, arthralgia Skin: denies: rash, lesions Neurological: other (dizziness) Psychiatric: as per HPI Hematological/Lymphatic: denies: easy bleeding, easy bruising ED Past Medical Hx - Past Medical History Previous Medical History?: Yes Hx Headaches / Migraines: Yes - Surgical History Past Surgical History?: No - Social History Smoking Status: Current Every Day Smoker Substance Use Type: Alcohol - Medications Home Medications: Home Medications Medication Instructions Recorded Confirmed Last Taken Type Ibuprofen [Motrin 600 MG tab] 600 mg PO Q8H PRN #30 tablet 03/26/15 Unknown Rx Amoxicillin [Trimox CAP] 500 mg PO Q8H #30 capsule 03/28/15 Unknown Rx HYDROcodone/APAP 10-325 [[place] 1 each PO Q6HR PRN #12 tablet 03/28/15 Unknown Rx 10/325] Acetaminophen/Codeine [Tylenol #3] 1 tab PO Q6H PRN #15 tab 08/16/15 Unknown Rx Cyclobenzaprine [Flexeril 10 MG 10 mg PO TID PRN #12 tablet 08/16/15 Unknown Rx TAB] Ibuprofen [Motrin 800 MG tab] 800 mg PO Q8HR PRN #30 tablet 08/16/15 Unknown Rx Naproxen [Naprosyn] 500 mg PO BID #30 tablet 06/28/16 Unknown Rx Ibuprofen [Motrin 600 MG tab] 600 mg PO Q8H PRN #15 tablet 11/13/16 Unknown Rx predniSONE [Deltasone] 20 mg PO BID #10 tab 11/13/16 Unknown Rx Butalb/Acetamin/Caff 50-325-40 1 tab PO Q6HR PRN #30 tab 02/17/17 Unknown Rx [Fioricet] Fluticasone Furoate [Flonase 15.8 ml NS DAILY #1 spray.susp 02/17/17 Unknown Rx Sensimist] Meloxicam 7.5 mg PO QAM #7 tablet 02/26/17 Unknown Rx ED Physical Exam - General Limitations: No Limitations General appearance: alert, in no apparent distress - Head Head exam: Present: atraumatic, normocephalic - Eye Eye exam: Present: normal appearance - ENT ENT exam: Present: mucous membranes moist - Neck Neck exam: Present: normal inspection - Respiratory Respiratory exam: Present: normal lung sounds bilaterally. Absent: respiratory distress - Cardiovascular Cardiovascular Exam: Present: regular rate, normal rhythm. Absent: systolic murmur, diastolic murmur, rubs, gallop - GI/Abdominal GI/Abdominal exam: Present: soft, normal bowel sounds - Rectal Rectal exam: Present: deferred - Extremities Exam Extremities exam: Present: normal inspection - Back Exam Back exam: Present: normal inspection - Neurological Exam Neurological exam: Present: alert, oriented X3 - Expanded Neurological Exam Expanded Cranial nerves: EOM's Intact: Normal, Gag Reflex: Normal, Tongue Deviation: Normal, Nystagmus: Normal, Facial Sensation: Normal, Facial Palsy with Forehead Movement: Normal, Facial Palsy without Forehead Movement: Normal Cerebellar function: Finger to Nose: Normal, Heel to [place]: Normal, Romberg: Normal Upper motor neuron: Danis Neglect: Normal, Pronator Drift: Normal, Babinski Sign : Normal, Sensory Extinction: Normal Sensory exam: Upper Extremity Light Touch: Normal, Upper Extremity Pin Prick: Normal, Upper Extremity Temperature: Normal, UE 2 Point Discrimination: Normal, Lower Extremity Light Touch: Normal, Lower Extremity Pin Prick: Normal Motor strength exam: RUE: 5, LUE: 5, RLE: 5, LLE: 5 Best Eye Response (Day): (4) open spontaneously Best Motor Response ([place]): (6) obeys commands Best Verbal Response (Day): (5) oriented [place] Total: 15 - Psychiatric Psychiatric exam: Present: normal affect, normal mood - Skin Skin exam: Present: warm, dry, intact, normal color. Absent: rash ED Course Vital Signs 09/23/17 08:37 Temperature 98.1 F Pulse Rate 88 Respiratory 20 Rate Blood Pressure 130/86 O2 Sat by Pulse 99 Oximetry ED Medical Decision Making - Lab Data Result diagrams: 09/23/17 09:06 09/23/17 09:06 - Medical Decision Making Patient's been evaluated for this provider fast track. EKG stable labs are stable patient's recent pain from a high altitude to a lower altitude. I discussed the patient's is most likely due to change of the tube. Discussed the patient to continue to drink plenty of fluids as well as discussed the patient at the age of 41 units to be followed up by primary care provider I will refer patient to [facility]. Patient verbalized understanding. Critical care attestation.: If time is entered above; I have spent that time in minutes in the direct care of this critically ill patient, excluding procedure time. ED Disposition Clinical Impression: Objective vertigo Disposition: DC-01 TO HOME OR SELFCARE Is pt being admited?: No Does the pt Need Aspirin: No Condition: Stable Instructions: Dizziness (ED), Vertigo (ED) Additional Instructions: Please increase her fluid intake. Your dizziness should resolved as her body acclimated to this altitude. I highly recommend to follow up with her primary care provider. I have listed one below. Referrals: PRIMARY CARE, [Primary Care Provider] - 3-5 Days Forms: Work/School Release Form(ED), Accompanied Note
== END 2017-09-23 11:43 | disposition home or self-care (01) ==
LOC: ED 08:33
DX: R42 Dizziness and giddiness (principal); F17.200 Nicotine dependence, unspecified, uncomplicated
CPT/HCPCS: 36415; 80048; 81001; 84484; 85025; 93005; 93010; 99283

== ENCOUNTER 2018-10-12 06:27 | Emergency (ER) | payer SELFPAY ==
[2018-10-12 06:58] VITALS: BP 153/93
--- NOTE | 2018-10-12 08:12 | Emergency Department Report ---
ED Lower Extremity HPI - General Chief Complaint: Extremity Injury, Lower Stated Complaint: L FOOT PAIN Source: patient Mode of arrival: Ambulatory Limitations: No Limitations - History of Present Illness Initial Comments: This is a 43-year-old -[place] male who presents to the emergency room with left foot pain for 4 days. Patient states the lateral side of the left f oot sensitive to touch and worse with weightbearing. Patient states he had similar symptoms a few months ago to the left great toe which lasted for a few days and went away. He denies recent injury. He reports pain is 10 out of 10 on pain scale. MD Complaint: foot injury Onset/Timin -: days(s) Injury: Foot: Left Type of Injury: unknown Place: home Severity: moderate Improves With: nothing Worsens With: weight bearing Context: walking Associated Symptoms: swelling, able to partially bear weight, ambulatory. marifer es: snap/pop sensation, numbness, tingling Treatments Prior to Arrival: NSAIDS - Related Data Previous Rx's Medication Instructions Recorded Last Taken Type Ibuprofen [Motrin 600 MG tab] 600 mg PO Q8H PRN #30 tablet 03/26/15 Unknown Rx Amoxicillin [Trimox CAP] 500 mg PO Q8H #30 capsule 03/28/15 Unknown Rx HYDROcodone/APAP 10-325 [[place] 1 each PO Q6HR PRN #12 tablet 03/28/15 Unknown Rx 10/325] Acetaminophen/Codeine [Tylenol #3] 1 tab PO Q6H PRN #15 tab 08/16/15 Unknown Rx Cyclobenzaprine [Flexeril 10 MG 10 mg PO TID PRN #12 tablet 08/16/15 Unknown Rx TAB] Ibuprofen [Motrin 800 MG tab] 800 mg PO Q8HR PRN #30 tablet 08/16/15 Unknown Rx Naproxen [Naprosyn] 500 mg PO BID #30 tablet 06/28/16 Unknown Rx Ibuprofen [Motrin 600 MG tab] 600 mg PO Q8H PRN #15 tablet 11/13/16 Unknown Rx predniSONE [Deltasone] 20 mg PO BID #10 tab 11/13/16 Unknown Rx Butalb/Acetamin/Caff 50-325-40 1 tab PO Q6HR PRN #30 tab 02/17/17 Unknown Rx [Fioricet] Fluticasone Furoate [Flonase 15.8 ml NS DAILY #1 spray.susp 10/09/17 Unknown Rx Sensimist] Meloxicam 7.5 mg PO QAM #7 tablet 02/26/17 Unknown Rx Indomethacin 50 mg PO Q8H PRN #20 capsule 10/12/18 Unknown Rx Prednisone [predniSONE 10 mg 10 mg PO .TAPER #1 tab.ds.pk 10/12/18 Unknown Rx (6-Day Pack, 21 Tabs)] traMADol [Ultram 50 MG tab] 50 mg PO Q6HR PRN #10 tablet 10/12/18 Unknown Rx Allergies Allergy/AdvReac Type Severity Reaction Status Date / Time No Known Allergies Allergy Unverified 03/26/15 14:07 ED Review of Systems ROS: Stated complaint: L FOOT PAIN Other details as noted in HPI Constitutional: denies: chills, fever Respiratory: denies: cough, shortness of breath, wheezing Cardiovascular: denies: chest pain, palpitations Gastrointestinal: denies: abdominal pain, nausea, diarrhea Musculoskeletal: arthralgia (left foot pain). denies: back pain, joint swelling Skin: denies: rash, lesions Neurological: denies: headache, weakness, paresthesias Psychiatric: denies: anxiety, depression ED Past Medical Hx - Past Medical History Previous Medical History?: Yes Hx Headaches / Migraines: Yes - Surgical History Past Surgical History?: No - Social History Smoking Status: Current Every Day Smoker - Medications Home Medications: Home Medications Medication Instructions Recorded Confirmed Last Taken Type Ibuprofen [Motrin 600 MG tab] 600 mg PO Q8H PRN #30 tablet 03/26/15 Unknown Rx Amoxicillin [Trimox CAP] 500 mg PO Q8H #30 capsule 03/28/15 Unknown Rx HYDROcodone/APAP 10-325 [[place] 1 each PO Q6HR PRN #12 tablet 03/28/15 Unknown Rx 10/325] Acetaminophen/Codeine [Tylenol #3] 1 tab PO Q6H PRN #15 tab 08/16/15 Unknown Rx Cyclobenzaprine [Flexeril 10 MG 10 mg PO TID PRN #12 tablet 08/16/15 Unknown Rx TAB] Ibuprofen [Motrin 800 MG tab] 800 mg PO Q8HR PRN #30 tablet 08/16/15 Unknown Rx Naproxen [Naprosyn] 500 mg PO BID #30 tablet 06/28/16 Unknown Rx Ibuprofen [Motrin 600 MG tab] 600 mg PO Q8H PRN #15 tablet 11/13/16 Unknown Rx predniSONE [Deltasone] 20 mg PO BID #10 tab 11/13/16 Unknown Rx Butalb/Acetamin/Caff 50-325-40 1 tab PO Q6HR PRN #30 tab 02/17/17 Unknown Rx [Fioricet] Fluticasone Furoate [Flonase 15.8 ml NS DAILY #1 spray.susp 02/17/17 Unknown Rx Sensimist] Meloxicam 7.5 mg PO QAM #7 tablet 02/26/17 Unknown Rx Indomethacin 50 mg PO Q8H PRN #20 capsule 10/12/18 Unknown Rx Prednisone [predniSONE 10 mg 10 mg PO .TAPER #1 tab.ds.pk 10/12/18 Unknown Rx (6-Day Pack, 21 Tabs)] traMADol [Ultram 50 MG tab] 50 mg PO Q6HR PRN #10 tablet 10/12/18 Unknown Rx ED Physical Exam - General Limitations: No Limitations General appearance: alert, in no apparent distress, obese - Respiratory Respiratory exam: Present: normal lung sounds bilaterally. Absent: respiratory distress - Cardiovascular Cardiovascular Exam: Present: regular rate, normal rhythm. Absent: systolic murmur, diastolic murmur, rubs, gallop - GI/Abdominal GI/Abdominal exam: Present: soft, normal bowel sounds - Expanded Lower Extremity Exam Left Hip exam: Present: normal inspection, full ROM Upper Leg exam: Present: normal inspection, full ROM Knee exam: Present: normal inspection, full ROM Lower Leg exam: Present: normal inspection, full ROM Ankle exam: Present: normal inspection, full ROM Foot/Toe exam: Present: tenderness, swelling, tenderness at base of 5th metatarsal. Absent: full ROM, abrasion, laceration, ecchymosis, deformity, crepidus, dislocation, erythema, amputation, puncture wound, foreign body, calcaneal tenderness, nail avulsion, subungual hematoma Neuro vascular tendon exam: Present: no vascular compromise Gait: Positive: observed and limited by pain - Neurological Exam Neurological exam: Present: alert, oriented X3 - Psychiatric Psychiatric exam: Present: normal affect, normal mood - Skin Skin exam: Present: warm, dry, intact, normal color. Absent: rash ED Course Vital Signs 10/12/18 10/12/18 06:43 06:46 Temperature 98.7 F 98.7 F Pulse Rate 99 H 102 H Respiratory 18 18 Rate Blood Pressure 153/93 153/93 O2 Sat by Pulse 98 97 Oximetry ED Lower Extremity MDM - Radiology Data Radiology results: report reviewed PROCEDURE: XR FOOT 2V LT TECHNIQUE: 3 nonweightbearing views left foot HISTORY: Left foot pain and swelling COMPARISONS: 11/13/2016 FINDINGS: Alignment is anatomic and joint spaces are preserved. No fracture or radiodense foreign body. Mild forefoot soft tissue swelling. IMPRESSION: Mild forefoot soft tissue swelling without acute osseous abnormality in the left foot. - Medical Decision Making Patient is stable and examined by me. PMH of migraine. Obtained x-ray of left foot. X-ray dictated by radiologist and report reviewed by myself. Mild forefoot soft tissue swelling without acute osseous abnormality in the left foot. No acute signs of distress noted. Given prednisone 50 mg po, toradol 30 mg IM once in ER for gout. Discussed plan to start prednisone taper and indomethacin 50 mg po tid with patient. Educated patient and spouse on low purine diet and given handout. Patient agrees to ED plan of care. Discharged home and follow up with PCP in 3 days. - Differential Diagnosis arthritis Critical care attestation.: If time is entered above; I have spent that time in minutes in the direct care of this critically ill patient, excluding procedure time. ED Disposition Clinical Impression: Left foot pain Gout attack Qualifiers: Gout site: foot Gout etiology: idiopathic Laterality: left Qualified Code(s): M10.072 - Idiopathic gout, left ankle and foot Disposition: DC- TO HOME OR SELFCARE Is pt being admited?: No Does the pt Need Aspirin: No Condition: Stable Instructions: Arthralgia (ED), Acute Gouty Arthritis (ED), Low Purine Diet (ED) Additional Instructions: Avoid foods that have a high purine content such as alcohol, organ meats, and seafood can cause higher risk of elevated uric acid and gout. Reduce intake of alcohol, especially beer, lowers the risk of gout. Reduce the intake of vegetables high in purines such as asparagus, spinach, and mushrooms. Dairy products reduce the risk of gout. Follow up with primary care provider in 2-3 days. Prescriptions: Indomethacin 50 mg PO Q8H PRN #20 capsule PRN Reason: Pain , Severe (7-10) Prednisone [predniSONE 10 mg (6-Day Pack, 21 Tabs)] 10 mg PO .TAPER #1 tab.ds.pk traMADol [Ultram 50 MG tab] 50 mg PO Q6HR PRN #10 tablet PRN Reason: Pain , Severe (7-10) Referrals: NICK PECK MD [Primary Care Provider] - 3-5 Days [facility] [place] [Outside] - 3-5 Days [facility] [Outside] - 3-5 Days Forms: Work/School Release Form(ED) Time of Disposition: 08:44
--- NOTE | 2018-10-12 08:29 | XRay Report ---
PROCEDURE: XR FOOT 2V LT TECHNIQUE: 3 nonweightbearing views left foot HISTORY: Left foot pain and swelling COMPARISONS: 11/13/2016 FINDINGS: Alignment is anatomic and joint spaces are preserved. No fracture or radiodense foreign body. Mild fo refoot soft tissue swelling. IMPRESSION: Mild forefoot soft tissue swelling without acute osseous abnormality in the left foot. This document is electronically signed by Alan Wagner MD., October 12 2018 09:27:00 AM ET
[2018-10-12] MEDS ORDERED: DELTASONE PO ONE (08:40)
[2018-10-12] MEDS ORDERED: TORADOL IM ONE (08:40)
== END 2018-10-12 09:24 | disposition home or self-care (01) ==
LOC: ED 06:27
DX: M10.9 Gout, unspecified (principal); G43.909 Migraine, unspecified, not intractable, without status migrainosus; F17.200 Nicotine dependence, unspecified, uncomplicated
CPT/HCPCS: 73620; 96372; 99283; J1885; J7512

== ENCOUNTER 2019-04-19 16:32 | Emergency (ER) | payer BC ==
--- NOTE | 2019-04-19 17:29 | Emergency Department Report ---
ED ENT HPI - General Chief complaint: Sore Throat Stated complaint: SORE THROAT Time Seen by Provider: 04/19/19 17:22 Source: patient Mode of arrival: Ambulatory Limitations: No Limitations - History of Present Illness Initial comments: This is a 43-year-old male nontoxic well in appearance with no signs of distress presents to the ED with complaint of sore throat. Patient denies any drooling or hoarseness. Patient denies any other symptoms. Denies any fever, chills, headache, nausea, vomiting, chest pain or SOB. Denies any other complaints. MD complaint: sore throat -: days(s) Location: throat Severity: mild Severity scale (0 -10): 8 Quality: aching Consistency: constant Improves with: none Worsens with: swallowing Associated Symptoms: pain with swallowing, sore throat. denies: fever, cough, gum swelling, toothache, tinnitus, hearing loss, discharge from ear, rhinorrhea - Related Data Previous Rx's Medication Instructions Recorded Last Taken Type Ibuprofen [Motrin 600 MG tab] 600 mg PO Q8H PRN #30 tablet 03/26/15 Unknown Rx Amoxicillin [Trimox CAP] 500 mg PO Q8H #30 capsule 03/28/15 Unknown Rx HYDROcodone/APAP 10-325 [[place] 1 each PO Q6HR PRN #12 tablet 03/28/15 Unknown Rx 10/325] Acetaminophen/Codeine [Tylenol #3] 1 tab PO Q6H PRN #15 tab 08/16/15 Unknown Rx Cyclobenzaprine [Flexeril 10 MG 10 mg PO TID PRN #12 tablet 08/16/15 Unknown Rx TAB] Ibuprofen [Motrin 800 MG tab] 800 mg PO Q8HR PRN #30 tablet 08/16/15 Unknown Rx Naproxen [Naprosyn] 500 mg PO BID #30 tablet 06/28/16 Unknown Rx Ibuprofen [Motrin 600 MG tab] 600 mg PO Q8H PRN #15 tablet 11/13/16 Unknown Rx predniSONE [Deltasone] 20 mg PO BID #10 tab 11/13/16 Unknown Rx Butalb/Acetamin/Caff 50-325-40 1 tab PO Q6HR PRN #30 tab 02/17/17 Unknown Rx [Fioricet] Fluticasone Furoate [Flonase 15.8 ml NS DAILY #1 spray.susp 02/17/17 Unknown Rx Sensimist] Meloxicam 7.5 mg PO QAM #7 tablet 02/26/17 Unknown Rx Indomethacin 50 mg PO Q8H PRN #20 capsule 10/12/18 Unknown Rx Prednisone [predniSONE 10 mg 10 mg PO .TAPER #1 tab.ds.pk 10/12/18 Unknown Rx (6-Day Pack, 21 Tabs)] traMADoL [Ultram 50 MG tab] 50 mg PO Q6HR PRN #10 tablet 10/12/18 Unknown Rx Amoxicillin [Amoxicillin TAB] 875 mg PO BID #20 tablet 04/19/19 Unknown Rx Ibuprofen [Motrin] 600 mg PO Q8H PRN #20 tablet 04/19/19 Unknown Rx Nystas/Diphen/Xyl Visc/Mylanta 15 ml MM Q6H PRN 5 Days ml 04/19/19 Unknown Rx [Magic Mouthwash] Allergies Allergy/AdvReac Type Severity Reaction Status Date / Time No Known Allergies Allergy Unverified 03/26/15 14:07 ED Dental HPI - General Chief complaint: Sore Throat Stated complaint: SORE THROAT Time Seen by Provider: 04/19/19 17:22 Source: patient Mode of arrival: Ambulatory Limitations: No Limitations - Related Data Previous Rx's Medication Instructions Recorded Last Taken Type Ibuprofen [Motrin 600 MG tab] 600 mg PO Q8H PRN #30 tablet 03/26/15 Unknown Rx Amoxicillin [Trimox CAP] 500 mg PO Q8H #30 capsule 03/28/15 Unknown Rx HYDROcodone/APAP 10-325 [[place] 1 each PO Q6HR PRN #12 tablet 03/28/15 Unknown Rx 10/325] Acetaminophen/Codeine [Tylenol #3] 1 tab PO Q6H PRN #15 tab 08/16/15 Unknown Rx Cyclobenzaprine [Flexeril 10 MG 10 mg PO TID PRN #12 tablet 08/16/15 Unknown Rx TAB] Ibuprofen [Motrin 800 MG tab] 800 mg PO Q8HR PRN #30 tablet 08/16/15 Unknown Rx Naproxen [Naprosyn] 500 mg PO BID #30 tablet 06/28/16 Unknown Rx Ibuprofen [Motrin 600 MG tab] 600 mg PO Q8H PRN #15 tablet 11/13/16 Unknown Rx predniSONE [Deltasone] 20 mg PO BID #10 tab 11/13/16 Unknown Rx Butalb/Acetamin/Caff 50-325-40 1 tab PO Q6HR PRN #30 tab 02/17/17 Unknown Rx [Fioricet] Fluticasone Furoate [Flonase 15.8 ml NS DAILY #1 spray.susp 02/17/17 Unknown Rx Sensimist] Meloxicam 7.5 mg PO QAM #7 tablet 02/26/17 Unknown Rx Indomethacin 50 mg PO Q8H PRN #20 capsule 10/12/18 Unknown Rx Prednisone [predniSONE 10 mg 10 mg PO .TAPER #1 tab.ds.pk 10/12/18 Unknown Rx (6-Day Pack, 21 Tabs)] traMADoL [Ultram 50 MG tab] 50 mg PO Q6HR PRN #10 tablet 10/12/18 Unknown Rx Amoxicillin [Amoxicillin TAB] 875 mg PO BID #20 tablet 04/19/19 Unknown Rx Ibuprofen [Motrin] 600 mg PO Q8H PRN #20 tablet 04/19/19 Unknown Rx Nystas/Diphen/Xyl Visc/Mylanta 15 ml MM Q6H PRN 5 Days ml 04/19/19 Unknown Rx [Magic Mouthwash] Allergies Allergy/AdvReac Type Severity Reaction Status Date / Time No Known Allergies Allergy Unverified 03/26/15 14:07 ED Review of Systems ROS: Stated complaint: SORE THROAT Other details as noted in HPI Constitutional: denies: chills, fever Eyes: denies: eye pain, eye discharge, vision change ENT: throat pain. denies: ear pain Respiratory: denies: cough, shortness of breath, wheezing Cardiovascular: denies: chest pain, palpitations Endocrine: no symptoms reported Gastrointestinal: denies: abdominal pain, nausea, diarrhea Genitourinary: denies: urgency, dysuria Musculoskeletal: denies: back pain, joint swelling, arthralgia Skin: denies: rash, lesions Neurological: denies: headache, weakness, paresthesias Psychiatric: denies: anxiety, depression Hematological/Lymphatic: denies: easy bleeding, easy bruising ED Past Medical Hx - Past Medical History Previous Medical History?: Yes Hx Headaches / Migraines: Yes - Surgical History Past Surgical History?: No - Social History Smoking Status: Current Every Day Smoker - Medications Home Medications: Home Medications Medication Instructions Recorded Confirmed Last Taken Type Ibuprofen [Motrin 600 MG tab] 600 mg PO Q8H PRN #30 tablet 03/26/15 Unknown Rx Amoxicillin [Trimox CAP] 500 mg PO Q8H #30 capsule 03/28/15 Unknown Rx HYDROcodone/APAP 10-325 [[place] 1 each PO Q6HR PRN #12 tablet 03/28/15 Unknown Rx 10/325] Acetaminophen/Codeine [Tylenol #3] 1 tab PO Q6H PRN #15 tab 08/16/15 Unknown Rx Cyclobenzaprine [Flexeril 10 MG 10 mg PO TID PRN #12 tablet 08/16/15 Unknown Rx TAB] Ibuprofen [Motrin 800 MG tab] 800 mg PO Q8HR PRN #30 tablet 08/16/15 Unknown Rx Naproxen [Naprosyn] 500 mg PO BID #30 tablet 06/28/16 Unknown Rx Ibuprofen [Motrin 600 MG tab] 600 mg PO Q8H PRN #15 tablet 11/13/16 Unknown Rx predniSONE [Deltasone] 20 mg PO BID #10 tab 11/13/16 Unknown Rx Butalb/Acetamin/Caff 50-325-40 1 tab PO Q6HR PRN #30 tab 02/17/17 Unknown Rx [Fioricet] Fluticasone Furoate [Flonase 15.8 ml NS DAILY #1 spray.susp 02/17/17 Unknown Rx Sensimist] Meloxicam 7.5 mg PO QAM #7 tablet 02/26/17 Unknown Rx Indomethacin 50 mg PO Q8H PRN #20 capsule 10/12/18 Unknown Rx Prednisone [predniSONE 10 mg 10 mg PO .TAPER #1 tab.ds.pk 10/12/18 Unknown Rx (6-Day Pack, 21 Tabs)] traMADoL [Ultram 50 MG tab] 50 mg PO Q6HR PRN #10 tablet 10/12/18 Unknown Rx Amoxicillin [Amoxicillin TAB] 875 mg PO BID #20 tablet 04/19/19 Unknown Rx Ibuprofen [Motrin] 600 mg PO Q8H PRN #20 tablet 04/19/19 Unknown Rx Nystas/Diphen/Xyl Visc/Mylanta 15 ml MM Q6H PRN 5 Days ml 04/19/19 Unknown Rx [Magic Mouthwash] ED Physical Exam - General Limitations: No Limitations General appearance: alert, in no apparent distress - Head Head exam: Present: atraumatic, normocephalic - Expanded ENT Exam Expanded Ear exam: Present: normal external inspection Mouth exam: Present: normal external inspection. Absent: drooling, trismus, muffled voice Teeth exam: Present: normal inspection Throat exam: Positive: tonsillar erythema, other (uvula midline. no swelling). Negative: tonsillomegaly, tonsillar exudate, R peritonsillar mass, L peritonsillar mass - Neck Neck exam: Present: normal inspection, full ROM, lymphadenopathy (bialteral tonsillar). Absent: tenderness, meningismus - Respiratory Respiratory exam: Present: normal lung sounds bilaterally. Absent: respiratory distress, wheezes - Cardiovascular Cardiovascular Exam: Present: regular rate, normal rhythm, normal heart sounds - Extremities Exam Extremities exam: Present: full ROM - Back Exam Back exam: Present: full ROM - Neurological Exam Neurological exam: Present: alert, oriented X3, normal gait - Psychiatric Psychiatric exam: Present: normal affect, normal mood - Skin Skin exam: Present: warm, dry, intact, normal color. Absent: rash ED Course Vital Signs 04/19/19 17:49 Temperature 98.5 F Pulse Rate 91 H Respiratory 18 Rate Blood Pressure 131/86 O2 Sat by Pulse 100 Oximetry - Reevaluation(s) Reevaluation #1: 04/19/19 17:29 Patient is speaking in full sentences with no signs of distress noted. ED Medical Decision Making - Medical Decision Making Patient was instructed to Follow-up with a primary care doctor in 3-5 days or if symptoms worsen and continue return to emergency room as soon as possible. At time of discharge, the patient does not seem toxic or ill in appearance. No acute signs of distress noted. Patient agrees to discharge treatment plan of care. No further questions noted by the patient. Critical care attestation.: If time is entered above; I have spent that time in minutes in the direct care of this critically ill patient, excluding procedure time. ED Disposition Clinical Impression: Pharyngitis Qualifiers: Pharyngitis/tonsillitis etiology: unspecified etiology Qualified Code(s): J02.9 - Acute pharyngitis, unspecified Disposition: DC-01 TO HOME OR SELFCARE Is pt being admited?: No Does the pt Need Aspirin: No Condition: Stable Instructions: Pharyngitis (ED) Additional Instructions: Follow-up with a primary care doctor in 3-5 days or if symptoms worsen and continue return to emergency room as soon as possible. Prescriptions: Amoxicillin [Amoxicillin TAB] 875 mg PO BID #20 tablet Nystas/Diphen/Xyl Visc/Mylanta [Magic Mouthwash] 15 ml MM Q6H PRN 5 Days ml PRN Reason: Sore Throat Ibuprofen [Motrin] 600 mg PO Q8H PRN #20 tablet PRN Reason: Pain Referrals: PRIMARY CARE, [Primary Care Provider] - 3-5 Days ROBERTA VEGA MD [Staff Physician] - 3-5 Days SO ASENCIO MD [Staff Physician] - 3-5 Days [facility] [Outside] - 3-5 Days Forms: Work/School Release Form(ED)
[2019-04-19 17:50] VITALS: BP 131/86
== END 2019-04-19 17:57 | disposition home or self-care (01) ==
LOC: ED 16:32
DX: J02.9 Acute pharyngitis, unspecified (principal); G43.909 Migraine, unspecified, not intractable, without status migrainosus; F17.200 Nicotine dependence, unspecified, uncomplicated; Z79.899 Other long term (current) drug therapy

== ENCOUNTER 2019-05-19 10:10 | Emergency (ER) | payer BC ==
[2019-05-19 11:06] LABS: Basophils % (Auto) 1.1 % (0.0-1.8); Eosinophils # (Auto) 0.1 K/mm3 (0.0-0.4); Eosinophils % (Auto) 2.7 % (0.0-4.3); Hematocrit 42.4 % (35.5-45.6); Hemoglobin 14.3 gm/dl (11.8-15.2); Lymphocytes # (Auto) 1.7 K/mm3 (1.2-5.4); Lymphocytes % (Auto) 46.9 % (13.4-35.0); Mean Corpuscular HGB Conc 34 % (32-34); Mean Corpuscular Volume 96 fl (84-94); Monocytes # (Auto) 0.3 K/mm3 (0.0-0.8); Monocytes % (Auto) 7.8 % (0.0-7.3); Platelet Count 306 K/mm3 (140-440); Red Cell Distribution Width 12.9 % (13.2-15.2)
--- NOTE | 2019-05-19 11:06 | XRay Report ---
CHEST 1 VIEW INDICATION: Chest Pain. COMPARISON: None. FINDINGS: Support devices: None. Heart: Within normal limits. Lungs/Pleura: No acute air space or interstitial disease. Additional findings: None. IMPRESSION: No acute abnormality. Signer Name: David Butler MD Signed: 05/19/2019 11:02 AM Workstation Name: [id number]
[2019-05-19 11:31] LABS: BUN/Creatinine Ratio 9; Blood Urea Nitrogen 11 mg/dL (9-20); Calcium 9.5 mg/dL (8.4-10.2); Hemolysis Index 16
[2019-05-19] MEDS: IBUPROFEN 800 MG TAB PO ONE (19:28)
[2019-05-19] MEDS: LIDOCAINE VISCOUS 2% 15 ML ORAL LIQD PO ONE (19:29)
[2019-05-19] MEDS: ALUM-MAG HYDROXIDE-SIMETHICONE 200-200-20MG/5ML ORAL LIQD 30 ML PO ONE (19:29)
--- NOTE | 2019-05-19 20:20 | Emergency Department Report ---
ED Chest Pain HPI - General Chief Complaint: Chest Pain Stated Complaint: LUNGS SWOLLEN Time Seen by Provider: 05/19/19 20:15 Source: patient Mode of arrival: Ambulatory Limitations: No Limitations - History of Present Illness Initial Comments: Mrs. Schwarz is a 43-year-old -[place] male with history of GERD, arthralgia, depression. Patient presents for epigastric pain and burning radiating from epigastric to 4/10 3 days. There is no nausea and Vomiting, no fever chills ,no abdominal pain. Patient is tolerating by mouth at this time with similar epigastric pain after GI cocktail given in ED. Patient states symptoms are exacerbated by eating and position. Symptoms are relieved by sitting upright and rest. Patient has not seen GI for years. Requesting referral to same. Complaint: chest pain Onset/Timin -: week(s) Onset: after eating Pain Location: epigastric Pain Radiation: none Severity: moderate Severity scale (0 -10): 5 Quality: heaviness, other (burning ) Consistency: intermittent Improves With: rest, other (position) Worsens With: eating re: denies: vomting, diaphoresis, dyspnea, sense of impending doom Other Symptoms: acid taste in mouth, burping Treatments Prior to Arrival: none - Related Data Previous Rx's Medication Instructions Recorded Last Taken Type Ibuprofen [Motrin 600 MG tab] 600 mg PO Q8H PRN #30 tablet 03/26/15 Unknown Rx Amoxicillin [Trimox CAP] 500 mg PO Q8H #30 capsule 03/28/15 Unknown Rx HYDROcodone/APAP 10-325 [[place] 1 each PO Q6HR PRN #12 tablet 03/28/15 Unknown Rx 10/325] Acetaminophen/Codeine [Tylenol #3] 1 tab PO Q6H PRN #15 tab 08/16/15 Unknown Rx Cyclobenzaprine [Flexeril 10 MG 10 mg PO TID PRN #12 tablet 08/16/15 Unknown Rx TAB] Ibuprofen [Motrin 800 MG tab] 800 mg PO Q8HR PRN #30 tablet 08/16/15 Unknown Rx Naproxen [Naprosyn] 500 mg PO BID #30 tablet 06/28/16 Unknown Rx Ibuprofen [Motrin 600 MG tab] 600 mg PO Q8H PRN #15 tablet 11/13/16 Unknown Rx predniSONE [Deltasone] 20 mg PO BID #10 tab 11/13/16 Unknown Rx Butalb/Acetamin/Caff 50-325-40 1 tab PO Q6HR PRN #30 tab 02/17/17 Unknown Rx [Fioricet] Fluticasone Furoate [Flonase 15.8 ml NS DAILY #1 spray.susp 02/17/17 Unknown Rx Sensimist] Meloxicam 7.5 mg PO QAM #7 tablet 02/26/17 Unknown Rx Indomethacin 50 mg PO Q8H PRN #20 capsule 10/12/18 Unknown Rx Prednisone [predniSONE 10 mg 10 mg PO .TAPER #1 tab.ds.pk 10/12/18 Unknown Rx (6-Day Pack, 21 Tabs)] traMADoL [Ultram 50 MG tab] 50 mg PO Q6HR PRN #10 tablet 10/12/18 Unknown Rx Amoxicillin [Amoxicillin TAB] 875 mg PO BID #20 tablet 04/19/19 Unknown Rx Ibuprofen [Motrin] 600 mg PO Q8H PRN #20 tablet 04/19/19 Unknown Rx Nystas/Diphen/Xyl Visc/Mylanta 15 ml MM Q6H PRN 5 Days ml 04/19/19 Unknown Rx [Magic Mouthwash] Omeprazole 40 mg PO DAILY #30 capsule.dr 05/19/19 Unknown Rx Sucralfate [Carafate] 1 gm PO ACHS 7 Days #28 tablet 05/19/19 Unknown Rx Allergies Allergy/AdvReac Type Severity Reaction Status Date / Time No Known Allergies Allergy Unverified 03/26/15 14:07 Heart Score - HEART Score History: Slightly suspicious EKG: Normal Age: < 45 Risk factors: No known risk factors Troponin: < normal limit HEART Score: 0 ED Review of Systems ROS: Stated complaint: LUNGS SWOLLEN Other details as noted in HPI Constitutional: denies: chills, fever Eyes: denies: eye pain, eye discharge, vision change ENT: denies: ear pain, throat pain Respiratory: denies: cough, shortness of breath, wheezing Cardiovascular: denies: chest pain, palpitations Endocrine: no symptoms reported Gastrointestinal: nausea, other (epigastric ). denies: abdominal pain, vomiting, diarrhea, constipation, melena, hematochezia Genitourinary: denies: urgency, dysuria Musculoskeletal: denies: back pain, joint swelling, arthralgia Skin: denies: rash, lesions Neurological: denies: headache, weakness, paresthesias Psychiatric: denies: anxiety, depression Hematological/Lymphatic: denies: easy bleeding, easy bruising ED Past Medical Hx - Past Medical History Previous Medical History?: Yes Hx Headaches / Migraines: Yes - Surgical History Past Surgical History?: No - Social History Smoking Status: Current Every Day Smoker Substance Use Type: None - Medications Home Medications: Home Medications Medication Instructions Recorded Confirmed Last Taken Type Ibuprofen [Motrin 600 MG tab] 600 mg PO Q8H PRN #30 tablet 03/26/15 Unknown Rx Amoxicillin [Trimox CAP] 500 mg PO Q8H #30 capsule 03/28/15 Unknown Rx HYDROcodone/APAP 10-325 [[place] 1 each PO Q6HR PRN #12 tablet 03/28/15 Unknown Rx 10/325] Acetaminophen/Codeine [Tylenol #3] 1 tab PO Q6H PRN #15 tab 08/16/15 Unknown Rx Cyclobenzaprine [Flexeril 10 MG 10 mg PO TID PRN #12 tablet 08/16/15 Unknown Rx TAB] Ibuprofen [Motrin 800 MG tab] 800 mg PO Q8HR PRN #30 tablet 08/16/15 Unknown Rx Naproxen [Naprosyn] 500 mg PO BID #30 tablet 06/28/16 Unknown Rx Ibuprofen [Motrin 600 MG tab] 600 mg PO Q8H PRN #15 tablet 11/13/16 Unknown Rx predniSONE [Deltasone] 20 mg PO BID #10 tab 11/13/16 Unknown Rx Butalb/Acetamin/Caff 50-325-40 1 tab PO Q6HR PRN #30 tab 02/17/17 Unknown Rx [Fioricet] Fluticasone Furoate [Flonase 15.8 ml NS DAILY #1 spray.susp 02/17/17 Unknown Rx Sensimist] Meloxicam 7.5 mg PO QAM #7 tablet 02/26/17 Unknown Rx Indomethacin 50 mg PO Q8H PRN #20 capsule 10/12/18 Unknown Rx Prednisone [predniSONE 10 mg 10 mg PO .TAPER #1 tab.ds.pk 10/12/18 Unknown Rx (6-Day Pack, 21 Tabs)] traMADoL [Ultram 50 MG tab] 50 mg PO Q6HR PRN #10 tablet 10/12/18 Unknown Rx Amoxicillin [Amoxicillin TAB] 875 mg PO BID #20 tablet 04/19/19 Unknown Rx Ibuprofen [Motrin] 600 mg PO Q8H PRN #20 tablet 04/19/19 Unknown Rx Nystas/Diphen/Xyl Visc/Mylanta 15 ml MM Q6H PRN 5 Days ml 04/19/19 Unknown Rx [Magic Mouthwash] Omeprazole 40 mg PO DAILY #30 capsule. 05/19/19 Unknown Rx Sucralfate [Carafate] 1 gm PO ACHS 7 Days #28 tablet 05/19/19 Unknown Rx ED Physical Exam - General Limitations: No Limitations General appearance: alert, in no apparent distress - Head Head exam: Present: atraumatic, normocephalic - Eye Eye exam: Present: normal appearance, PERRL, EOMI Pupils: Present: normal accommodation - ENT ENT exam: Present: mucous membranes moist, TM's normal bilaterally, normal external ear exam - Expanded ENT Exam Expanded Throat exam: Positive: tonsillar erythema, tonsillomegaly, other (uvula midline no exudate no lesions ). Negative: tonsillar exudate, R peritonsillar mass, L peritonsillar mass - Neck Neck exam: Present: normal inspection, full ROM. Absent: tenderness, meningismus, lymphadenopathy, thyromegaly - Expanded Neck Exam Expanded Neck exam: Absent: tenderness, midline deformity, anterior neck swelling, thyroid mass, carotid bruit, tracheal deviation - Respiratory Respiratory exam: Present: normal lung sounds bilaterally. Absent: respiratory distress, wheezes, stridor, chest wall tenderness - Cardiovascular Cardiovascular Exam: Present: regular rate, normal rhythm, normal heart sounds. Absent: systolic murmur, diastolic murmur, rubs, gallop - GI/Abdominal GI/Abdominal exam: Present: soft, normal bowel sounds. Absent: distended, tenderness, guarding, rebound, rigid, bruit, hernia - Expanded GI/Abdominal Exam Expanded GI/Abdominal exam: Absent: psoas sign, obturator sign, heel tap sign, Luna's sign, Rovsing's sign, tenderness at Mcburney's Point, ascites - Rectal Rectal exam: Present: deferred - Extremities Exam Extremities exam: Present: normal inspection, full ROM, normal capillary refill. Absent: tenderness, calf tenderness - Back Exam Back exam: Present: normal inspection, full ROM, tenderness. Absent: CVA tenderness (R), CVA tenderness (L), vertebral tenderness - Neurological Exam Neurological exam: Present: alert, oriented X3, CN II-XII intact, normal gait, reflexes normal - Psychiatric Psychiatric exam: Present: normal affect, normal mood - Skin Skin exam: Present: warm, dry, intact, normal color. Absent: rash ED Course Vital Signs 05/19/19 10:35 Temperature 98.5 F Pulse Rate 86 Respiratory 18 Rate Blood Pressure 133/61 O2 Sat by Pulse 99 Oximetry TOÑA score - Toña Score Age > 65: (0) No Aspirin use within the Past 7 Days: (0) No 3 or more CAD Risk Factors: (0) No 2 or more Angina events in past 24 hrs: (0) No Known CAD with more than 50% Stenosis: (0) No Elevated Cardiac Markers: (0) No ST Deviation Greater than 0.5mm: (0) No TOÑA Score: 0 ED Medical Decision Making - Lab Data Result diagrams: 05/19/19 10:45 05/19/19 10:45 Critical care attestation.: If time is entered above; I have spent that time in minutes in the direct care of this critically ill patient, excluding procedure time. ED Disposition Clinical Impression: GERD (gastroesophageal reflux disease) Qualifiers: Esophagitis presence: with esophagitis Qualified Code(s): K21.0 - Gastro- esophageal reflux disease with esophagitis Disposition: TO HOME OR SELFCARE Is pt being admited?: No Does the pt Need Aspirin: No Condition: Stable Instructions: Gastroesophageal Reflux Disease (ED), Diet for Ulcers and Gastritis (ED) Prescriptions: Sucralfate [Carafate] 1 gm PO ACHS 7 Days #28 tablet Omeprazole 40 mg PO DAILY #30 capsule. Referrals: [facility] [Provider Group] - 3-5 Days Forms: Work/School Release Form(ED) Time of Disposition: 20:28
[2019-05-19 20:51] VITALS: BP 130/70
== END 2019-05-19 20:52 | disposition home or self-care (01) ==
LOC: ED 10:10
DX: K21.0 Gastro-esophageal reflux disease with esophagitis (principal); G43.909 Migraine, unspecified, not intractable, without status migrainosus; F17.200 Nicotine dependence, unspecified, uncomplicated; Z79.1 Long term (current) use of non-steroidal anti-inflammatories (NSAID); Z79.2 Long term (current) use of antibiotics; Z79.899 Other long term (current) drug therapy
CPT/HCPCS: 36415; 71045; 80048; 84484; 85025; 93005; 93010

== ENCOUNTER 2020-05-15 13:13 | Emergency (ER) | payer BC ==
[2020-05-15 14:01] VITALS: BP 172/81
--- NOTE | 2020-05-15 14:02 | Emergency Department Report ---
Blank Doc - Documentation Documentation: 44-year-old male that was sent by PCP for headaches and CT scan. Patient stated has chronic headaches but worse the past few days. Denies any head injuries. Denies worst headache. Exam: neuro exam unremarkable. This initial assessment/diagnostic orders/clinical plan/treatment(s) is/are subject to change based on patient's health status, clinical progression and re- assessment by fellow clinical providers in the ED. Further treatment and workup at subsequent clinical providers discretion. Patient/guardians urged not to elope from the ED as their condition may be serious if not clinically assessed and managed. Initial orders include: 1- Patient sent to [facility] for further evaluation and treatment 2- CT head
--- NOTE | 2020-05-15 18:22 | Cat Scan Report ---
CT head without contrast INDICATION : headache. TECHNIQUE: Axial imaging performed from the skull apex through the skull base without the use of con trast. All CT scans at this location are performed using CT dose reduction for ALARA by means of aut omated exposure control. COMPARISON: None FINDINGS: Parenchyma: No acute intracranial hemorrhage or parenchymal abnormality. Ventricles: Ventricles are normal in size and appear symmetric. Soft tissues: Soft tissues including the orbits appear normal. Bones: No acute osseous abnormality. Sinuses: Mild mucosal thickening in the right greater than left maxillary sinuses. Remaining sinuses and mastoid air cells are clear. IMPRESSION: No acute abnormality. Signer Name: Ebenezer Obrien MD Signed: 05/15/2020 6:17 PM Workstation Name: [id number]
--- NOTE | 2020-05-15 18:36 | Emergency Department Report ---
ED Headache HPI - General Chief Complaint: Headache Stated Complaint: HEADACHE Time Seen by Provider: 05/15/20 13:57 Source: patient - History of Present Illness Initial Comments: 44 y/o AAA male comes in for a headache that he has had for 2 months. Patient states he has been suffering for intermittent headaches for over 25 years. Patient went to [facility] who he has seen 3 times in the last 2 months. She referred him to the ER for a CT. Patient states that he will often get nasal congestion as well as running nose. Ibuprofen will help for a couple of hours but will return. Patient states he has not been able to sleep in the last 2 months. He has tried Zyrtec and flonase. Seen by ENT. No fevers no /V or fevers. Timing/Duration: other (2 months) Quality: moderate, achy, throbbing Head Injury Location: frontal, global Recent Head Trauma: chronic headaches Associated Symptoms: facial pain, nasal congestion, nasal drainage. denies: stiff neck, vision changes Allergies/Adverse Reactions: Allergies No Known Allergies Allergy (Unverified 03/26/15 14:07) Home Medications: Ambulatory Orders Ibuprofen [Motrin 600 MG tab] 600 mg PO Q8H PRN #30 tablet 03/26/15 Amoxicillin [Trimox CAP] 500 mg PO Q8H #30 capsule 03/28/15 HYDROcodone/APAP 10-325 [[place] 10/325] 1 each PO Q6HR PRN #12 tablet 03/28/15 Acetaminophen/Codeine [Tylenol #3] 1 tab PO Q6H PRN #15 tab 08/16/15 Cyclobenzaprine [Flexeril 10 MG TAB] 10 mg PO TID PRN #12 tablet 08/16/15 Ibuprofen [Motrin 800 MG tab] 800 mg PO Q8HR PRN #30 tablet 08/16/15 Naproxen [Naprosyn] 500 mg PO BID #30 tablet 06/28/16 Ibuprofen [Motrin 600 MG tab] 600 mg PO Q8H PRN #15 tablet 11/13/16 predniSONE [Deltasone] 20 mg PO BID #10 tab 11/13/16 Fluticasone Furoate [Flonase Sensimist] 15.8 ml NS DAILY #1 spray.susp 02/17/17 Meloxicam 7.5 mg PO QAM #7 tablet 02/26/17 Indomethacin 50 mg PO Q8H PRN #20 capsule 10/12/18 Prednisone [predniSONE 10 mg (6-Day Pack, 21 Tabs)] 10 mg PO .TAPER #1 tab.ds.pk 10/12/18 traMADoL [Ultram 50 MG tab] 50 mg PO Q6HR PRN #10 tablet 10/12/18 Amoxicillin [Amoxicillin TAB] 875 mg PO BID #20 tablet 04/19/19 Ibuprofen [Motrin] 600 mg PO Q8H PRN #20 tablet 04/19/19 Nystas/Diphen/Xyl Visc/Mylanta [Magic Mouthwash] 15 ml MM Q6H PRN 5 Days ml 04/19/19 Omeprazole 40 mg PO DAILY #30 capsule. 05/19/19 Sucralfate [Carafate] 1 gm PO ACHS 7 Days #28 tablet 05/19/19 SUMAtriptan succinate [Imitrex] 50 mg PO ONCE PRN #12 tablet 05/15/20 ED Review of Systems ROS: Stated complaint: HEADACHE Other details as noted in HPI Comment: All other systems reviewed and negative ED Past Medical Hx - Past Medical History Previous Medical History?: Yes Hx Headaches / Migraines: Yes - Social History Smoking Status: Current Every Day Smoker Substance Use Type: None - Medications Home Medications: Home Medications Medication Instructions Recorded Confirmed Last Taken Type Ibuprofen [Motrin 600 MG tab] 600 mg PO Q8H PRN #30 tablet 03/26/15 Unknown Rx Amoxicillin [Trimox CAP] 500 mg PO Q8H #30 capsule 03/28/15 Unknown Rx HYDROcodone/APAP 10-325 [[place] 1 each PO Q6HR PRN #12 tablet 03/28/15 Unknown Rx 10/325] Acetaminophen/Codeine [Tylenol #3] 1 tab PO Q6H PRN #15 tab 08/16/15 Unknown Rx Cyclobenzaprine [Flexeril 10 MG 10 mg PO TID PRN #12 tablet 08/16/15 Unknown Rx TAB] Ibuprofen [Motrin 800 MG tab] 800 mg PO Q8HR PRN #30 tablet 08/16/15 Unknown Rx Naproxen [Naprosyn] 500 mg PO BID #30 tablet 06/28/16 Unknown Rx Ibuprofen [Motrin 600 MG tab] 600 mg PO Q8H PRN #15 tablet 11/13/16 Unknown Rx predniSONE [Deltasone] 20 mg PO BID #10 tab 11/13/16 Unknown Rx Fluticasone Furoate [Flonase 15.8 ml NS DAILY #1 spray.susp 02/17/17 Unknown Rx Sensimist] Meloxicam 7.5 mg PO QAM #7 tablet 02/26/17 Unknown Rx Indomethacin 50 mg PO Q8H PRN #20 capsule 10/12/18 Unknown Rx Prednisone [predniSONE 10 mg 10 mg PO .TAPER #1 tab.ds.pk 10/12/18 Unknown Rx (6-Day Pack, 21 Tabs)] traMADoL [Ultram 50 MG tab] 50 mg PO Q6HR PRN #10 tablet 10/12/18 Unknown Rx Amoxicillin [Amoxicillin TAB] 875 mg PO BID #20 tablet 04/19/19 Unknown Rx Ibuprofen [Motrin] 600 mg PO Q8H PRN #20 tablet 04/19/19 Unknown Rx Nystas/Diphen/Xyl Visc/Mylanta 15 ml MM Q6H PRN 5 Days ml 04/19/19 Unknown Rx [Magic Mouthwash] Omeprazole 40 mg PO DAILY #30 capsule.dr 05/19/19 Unknown Rx Sucralfate [Carafate] 1 gm PO ACHS 7 Days #28 tablet 05/19/19 Unknown Rx SUMAtriptan succinate [Imitrex] 50 mg PO ONCE PRN #12 tablet 05/15/20 Unknown Rx ED Physical Exam - General Limitations: No Limitations General appearance: alert, in no apparent distress - Head Head exam: Present: atraumatic, normocephalic - Eye Eye exam: Present: normal appearance, PERRL, EOMI - ENT ENT exam: Present: mucous membranes moist - Neck Neck exam: Present: normal inspection, full ROM. Absent: tenderness, lymphadenopathy - Respiratory Respiratory exam: Present: normal lung sounds bilaterally. Absent: respiratory distress - Cardiovascular Cardiovascular Exam: Present: regular rate, normal rhythm. Absent: systolic murmur, diastolic murmur, rubs, gallop - Neurological Exam Neurological exam: Present: alert, oriented X3, normal gait - Expanded Neurological Exam Expanded Cranial nerves: EOM's Intact: Normal, Gag Reflex: Normal, Tongue Deviation: Normal, Nystagmus: Normal, Facial Sensation: Normal, Facial Palsy with Forehead Movement: Normal, Facial Palsy without Forehead Movement: Normal Cerebellar function: Finger to Nose: Normal, Heel to [place]: Normal, Romberg: Normal Upper motor neuron: Danis Neglect: Normal, Pronator Drift: Normal, Sensory Extinction: Normal Sensory exam: Upper Extremity Light Touch: Normal, Upper Extremity Pin Prick: Normal, Upper Extremity Temperature: Normal, UE 2 Point Discrimination: Normal, Lower Extremity Light Touch: Normal, Lower Extremity Pin Prick: Normal, Lower Extremity Temperature: Normal, LE 2 Point Discrimination: Normal Motor strength exam: RUE: 5, LUE: 5, RLE: 5, LLE: 5 Best Eye Response (Slater): (4) open spontaneously Best Motor Response (Slater): (6) obeys commands Best Verbal Response (Slater): (5) oriented Slater Total: 15 - Psychiatric Psychiatric exam: Present: normal affect, normal mood - Skin Skin exam: Present: warm, dry, intact, normal color. Absent: rash ED Course Vital Signs 05/15/20 05/15/20 14:01 20:33 Temperature 98 F Pulse Rate 104 H 76 Respiratory 16 16 Rate Blood Pressure 172/81 [Right] O2 Sat by Pulse 98 97 Oximetry ED Medical Decision Making - Radiology Data Radiology results: report reviewed Patient: VISHAL EDDY MR#: [id number] : 1975 Acct:[id number] Age/Sex: 44 / M ADM Date: 05/15/20 Loc: ED Attending Dr: Ordering Physician: DAYANA GARRISON NP Date of Service: 05/15/20 Procedure(s): CT head/brain wo con Accession Number(s): [id number] cc: DAYANA GARRISON NP CT head without contrast INDICATION : headache. TECHNIQUE: Axial imaging performed from the skull apex through the skull base without the use of contrast. All CT scans at this location are performed using CT dose reduction for ALARA by means of automated exposure control. COMPARISON: None FINDINGS: Parenchyma: No acute intracranial hemorrhage or parenchymal abnormality. Ventricles: Ventricles are normal in size and appear symmetric. Soft tissues: Soft tissues including the orbits appear normal. Bones: No acute osseous abnormality. Sinuses: Mild mucosal thickening in the right greater than left maxillary sinuses. Remaining sinuses and mastoid air cells are clear. IMPRESSION: No acute abnormality. Signer Name: Ebenezer Obrien MD Signed: 05/15/2020 6:17 PM Workstation Name: [email or web address] Transcribed By: BARRY Dictated By: Ebenezer Obrien MD Electronically Authenticated By: Ebenezer Obrien MD Signed Date/Time: 05/15/201816 DD/ 15 TD/TT: - Medical Decision Making 44 y/o AAA male comes in for a headache that he has had for 2 months. Patient states he has been suffering for intermittent headaches for over 25 years. Patient went to [facility] who he has seen 3 times in the last 2 months. She referred him to the ER for a CT. Patient states that he will often get nasal congestion as well as running nose. Ibuprofen will help for a couple of hours but will return. Patient states he has not been able to sleep in the last 2 months. He has tried Zyrtec and flonase. Seen by ENT. No fevers no /V or fevers. CT scan neg for any acute abnormalities. Rx for imitrex referral to neurologist and PCP. Critical care attestation.: If time is entered above; I have spent that time in minutes in the direct care of this critically ill patient, excluding procedure time. ED Disposition Clinical Impression: Headache Qualifiers: Headache type: unspecified Headache chronicity pattern: chronic headache Intractability: intractable Qualified Code(s): R51.9 - Headache, unspecified Disposition: DC-01 TO HOME OR SELFCARE Is pt being admited?: No Does the pt Need Aspirin: No Condition: Stable Additional Instructions: Try medication do not drive or operate heavy machinery. Prescriptions: SUMAtriptan succinate [Imitrex] 50 mg PO ONCE PRN #12 tablet PRN Reason: Headache Referrals: [facility] [Other] - 3-5 Days MIRA MARTIN II, MD [Staff Physician] - 3-5 Days JOSE HAMLIN JR, MD [Staff Physician] - 3-5 Days DOROTHY RAJAN MD [Staff Physician] - 3-5 Days Forms: Work/School Release Form(ED)
== END 2020-05-15 20:33 | disposition home or self-care (01) ==
LOC: ED 13:13
DX: R51.9 Headache, unspecified (principal); R09.81 Nasal congestion; R09.89 Other specified symptoms and signs involving the circulatory and respiratory systems; F17.200 Nicotine dependence, unspecified, uncomplicated; Z79.1 Long term (current) use of non-steroidal anti-inflammatories (NSAID); Z79.2 Long term (current) use of antibiotics; Z79.899 Other long term (current) drug therapy
CPT/HCPCS: 70450

== ENCOUNTER 2021-06-09 08:52 | Emergency (ER) | payer BC ==
[2021-06-09 09:01] VITALS: BP 142/89
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
== END 2021-06-09 10:20 | disposition home or self-care (01) ==
LOC: ED 08:52
DX: S01.551A Open bite of lip, initial encounter (principal); M25.522 Pain in left elbow; I10 Essential (primary) hypertension; G43.909 Migraine, unspecified, not intractable, without status migrainosus; Z86.73 Personal history of transient ischemic attack (TIA), and cerebral infarction without residual deficits; F17.200 Nicotine dependence, unspecified, uncomplicated; M54.9 Dorsalgia, unspecified; V89.2XXA Person injured in unspecified motor-vehicle accident, traffic, initial encounter; Y93.89 Activity, other specified; Y92.89 Other specified places as the place of occurrence of the external cause; Y99.8 Other external cause status
CPT/HCPCS: 99282